=== PATIENT | female | born 1945 | race Caucasian/White ===

== ENCOUNTER 2021-12-14 16:38 | Outpatient (CLI) | payer MEDICARE, SELFPAY ==
--- NOTE | ~2021-12-14 | MR_ITS ---
EXAMINATION: MR knee RT wo con DATE: 12/14/2021 17:22 INDICATION: Right knee pain. TECHNIQUE: Magnetic resonance imaging (MRI) of the right knee was performed without intravenous contr ast. Sequences included axial PD-weighted FS FSE, coronal PD-weighted FSE and PD-weighted FS FSE, sag ittal PD-weighted FSE, and sagittal T2-weighted FS FSE. COMPARISON: None. FINDINGS: Medial compartment: There is a complex tear involving body and posterior horn of medial meniscus. There is extensive part ial thickness cartilage loss of femoral condyle and tibial condyle. There is full-thickness cartilage loss of tibial condyle involving the central and medial articular surface with subchondral insuffici ency fracture with low signal fracture line and surrounding edema. There is full-thickness cartilage loss of femoral condyle involving the central and medial articular surface with mild subchondral teofilo a-like marrow signal intensity and small subchondral cysts. Osteophytes are noted. Lateral compartment: There is an undersurface horizontal tear of body of lateral meniscus. There is partial-thickness cart ilage loss of femoral condyle and tibial condyle, deep at the medial tibial articular surface. Osteop hytes are noted. Patellofemoral compartment: There is full-thickness cartilage loss of patellar median ridge and lateral facet and deep partial th ickness cartilage loss of patellar medial facet with mild subchondral edema-like marrow signal intens ity. There is partial-thickness cartilage loss of trochlea. Osteophytes are noted. Ligaments and tendons: The anterior and posterior cruciate ligaments are normal. Medial collateral ligament and lateral mathieu ateral ligament complex are normal. There is mild patellar tendinopathy. Fluid: There is a small knee joint effusion. There is a small Ma's cyst. There is mild prepatellar and medina perficial infrapatellar bursitis. IMPRESSION: 1. Insufficiency fracture of medial tibial condyle. 2. Severe chondrosis of medial and patellofemoral compartments and moderate chondrosis of lateral com partment. 3. Tears of medial and lateral menisci. 4. Small knee joint effusion. 5. Small Ma's cyst. Reviewed, dictated and finalized at location A. IMPRESSION: 1. Insufficiency fracture of medial tibial condyle. 2. Severe chondrosis of medial and patellofemoral compartments and moderate cho ndrosis of lateral compartment. 3. Tears of medial and lateral menisci. 4. Small knee joint effusion. 5. Small Ma's cyst.
== END 2021-12-14 16:39 | disposition home or self-care (01) ==
PROVIDERS: Visit Provider Orthopaedic Surgery
DX: M71.21 Synovial cyst of popliteal space [Baker], right knee (principal); M25.461 Effusion, right knee; S83.241A Other tear of medial meniscus, current injury, right knee, initial encounter; S83.281A Other tear of lateral meniscus, current injury, right knee, initial encounter; X58.XXXA Exposure to other specified factors, initial encounter
CPT/HCPCS: 73721